=== PATIENT | female | born 1945 | race Caucasian/White ===

== ENCOUNTER → 2023-11-12 10:27 | Outpatient (REF) | payer MEDICARE, SELFPAY | LOC: HWRAD 10:27 | PROVIDERS: ATTENDING PHYSICIAN Family Medicine | DX: R91.1 Solitary pulmonary nodule (principal) | CPT/HCPCS: 71250 ==

== ENCOUNTER 2024-08-22 17:16 | Emergency (ER) | payer MEDICARE, SELFPAY ==
[2024-08-22] VITALS (11 sets, daily range): BP systolic 137–174; BP diastolic 67–134
[2024-08-22 17:39] LABS: % Basophils 0.6 % (0-2); % Eosinophils 0.3 % (0-6); % Immature Granulocytes 0.3 % (0-0.5); % Lymphocytes 22.3 % (20.5-51.1); % Monocytes 6.7 % (1.7-9.3); % Neutrophils 69.8 % (42.2-75.2); Absolute Lymphocytes 1.5 10^3/uL (1.2-3.4); Absolute Monocytes 0.4 10^3/uL (0.1-0.6); Absolute Neutrophils 4.6 10^3/uL (1.4-6.5); Hematocrit 39.8 % (37.0-47.0); Hemoglobin 13.1 g/dL (12.0-16.0); Mean Corp Hgb Conc. 32.9 g/dL (33.0-37.0); Mean Corpuscular Hgb 29.4 pg (27.0-31.0); Mean Corpuscular Volume 89.4 fL (81.0-99.0); Mean Platelet Volume 9.3 fL (7.4-10.4); Nucleated Red Blood Cells % 0 %; Platelet Count 241 10^3/uL (130-400); Red Blood Cell Count 4.45 10^6/uL (4.20-5.40); Red Cell Dist. Width 12.8 % (11.5-14.5); White Blood Cell Count 6.6 10^3/uL (4.8-10.8)
[2024-08-22 18:03] LABS: ALT (SGPT) 46 U/L (0-35); AST (SGOT) 39 U/L (14-36); Albumin 4.3 g/dl (3.5-5.0); Alkaline Phosphatase 72 U/L (38-126); Blood Urea Nitrogen 28 mg/dl (7-17); Calcium 9.2 mg/dl (8.4-10.2); Carbon Dioxide 28 mmol/L (22-30); Chloride 107 mmol/L (98-107); Glucose 114 mg/dl (70-99); Potassium 4.2 mmol/L (3.5-5.1); Sodium 141 mmol/L (135-145); Total Bilirubin 0.3 mg/dl (0.2-1.3); Total Protein 7.2 g/dl (6.3-8.2); eGFR > 60.00
--- NOTE | 2024-08-22 22:07 | ED.GENMED ---
History of Present Illness
General
Chief Complaint: Dizziness
Source: patient
Exam Limitations: none
Time Seen by Provider: 08/22/24 21:56
History of Present Illness
History of Present Illness:
See MDM
Past History
Past History
ED Past Medical History: Asthma, GERD, Psychiatric (depression) and Other (sleep apnea)
ED Past Surgical History: Cholecystectomy and Gynecological
Social History
Tobacco: Non-smoker
Alcohol: None
Drug: None
Living: alone
Employment: Retired
Family History
Family History: Hypertension
Phy Exam
Physical Exam
Physical Exam:
See MDM
Course
Orders/Labs/Results
Orders:
Orders
08/22/24 17:25
Electrocardiogram (*1) Urgent
Reason for Study: Vertigo / Dizzy
EKG- Treatment ONCE
08/22/24 17:33
Complete Blood Count/With Diff Urgent
Comprehensive Metabolic Panel Urgent
08/22/24 22:06
CT Head W/o Iv Contrast Urgent
Comment:
Reason For Exam: gaze palsy and dizzy
Labetalol HCl [Trandate] 10 mg IV NOW STA
Abnormal Lab Results
08/22/24
17:33
MCHC 32.9 L g/dL
(33.0-37.0)
BUN 28 H mg/dl
(7-17)
Glucose 114 H mg/dl
(70-99)
AST 39 H U/L
(14-36)
ALT 46 H U/L
(0-35)
08/22/24 17:33
08/22/24 17:33
Vital Signs
Initial and Last Documented VS:
Initial Vital Signs
Temp Pulse Resp BP Pulse Ox
98 F 88 16 174/95 100
08/22/24 17:22 08/22/24 17:22 08/22/24 17:22 08/22/24 17:22 08/22/24 17:22
Last Documented Vital Signs
Temp Pulse Resp BP Pulse Ox
98 F 75 14 139/68 100
08/22/24 17:22 08/22/24 23:02 08/22/24 23:02 08/22/24 23:02 08/22/24 23:02
MDM/Problems Addressed
Differential Diagnosis Includes:
HPI and MDM Narrative:
78-year-old female presenting for evaluation of right-sided gaze palsy. Patient blames her memory but states she cannot recollect the exact details. She states she woke up feeling okay. She noted the symptoms around 10:30 AM. She noticed that
her eyes were stuck to the right. This was associated with some dizziness. After several minutes, it appeared to self resolve but she came in for evaluation. Now, she planes of weakness and fatigue but denies any visual complaints. On exam,
heart regular in rhythm. EOMI. Pupils equal reactive. No focal neurodeficits. Patient found to be hypertensive. Will continue to monitor
Physical exam
General: Well appearing and non-toxic
HEENT: protecting airway. Pupils equal reactive. EOMI
Neck: appears supple
CV: No evidence of cyanosis. Regular rate and rhythm
Resp: No accessory muscle use
Abd: Non-distended
Extremities: No deformities
Neuro: alert. NIH stroke scale 0
Psych: Normal affect
Skin: Intact
Problems Addressed including Acute and Chronic Conditions affecting care:
1. Resolved gaze palsy
Acuity: acute
Prognosis: stable
Details: Discussed seizure versus stroke. Will obtain CT head
2. Hypertension
Acuity: acute
Prognosis: stable
Details: Will continue to monitor
Updates
CT head negative. On multiple reassessments, patient remains symptom-free. I did offer and suggest admission for MRI and neurology evaluation. Patient understands the concern I have the risk of going home which she states she is getting at home.
We did discuss seizure versus TIA. She has neurology follow-up next month in regards to memory loss. She states she will call the neurologist to try to expedite the follow-up. Until then, I discussed follow-up with PCP to discuss outpatient MRI
Differential Diagnosis (but not limited to): Stroke, seizure
Testing considered: CTA
Drug therapy (if applicable): OTC meds, please see d/c instruction regarding Rx drugs
Amount and/or Complexity of Data Reviewed
Clinical info obtained from: Patient
External data reviewed: N/A
Labs I independently reviewed (but not limited to): Mild LFT elevation
Radiology: The CT scan was personally and independently reviewed. In addition, official CT report reviewed.
Pulse Ox: not hypoxic
EKG independently reviewed: Normal sinus rhythm, left axis, no STEMI
Rodding Anode Worker: Sinus rhythm
Critical Care: N/A
Risk of Complication:
Social Determinants of health: Good social support
Discussed with other providers: N/A
Escalation of Care includes Admit/Obs: After being observed in the Emergency Department, pt stable for discharge.
Occasional wrong word or 'sound a like' substitutions may have occurred due to the inherent limitations of voice recognition software. Read the chart carefully and recognize, using context, where substitutions have occurred.
*Critical Care Note
Total Time (30-74mins, 75-104mins- exclusive of procedures): Not Applicable
ED Attending Note
-
Portions of this chart may have been created with voice recognition software.� Occasional wrong word or��sound alike� substitutions may have occurred due to the inherent limitations of voice recognition software.
Discharge Plan
Departure
Patient Disposition: Home (Routine Discharge)
Date of Disposition: 08/22/24
Time of Disposition: 23:55
Patient with high blood pressure during this ER visit?: Yes
Discharge Problem:
Gaze palsy
Instructions: BLOOD PRESSURE
Prescriptions:
No Action
Alvesco
2 puff inhalation PRN (Reason: wheezes)
esomeprazole magnesium [Nexium] 40 MG capsule,delayed release(DR/EC)
40 mg PO DAILY
Lexapro
30 mg PO DAILY
Melotain
9 mg PO DAILY
Seroquel:
50 mg PO DAILY
Synthroid:
0.75 mcg PO DAILY
Tamasapen
30 mg PO DAILY
Xopenex Concentrate
2 puff inhalation PRN (Reason: wheezes )
hydrocodone-acetaminophen [Vicodin] 1 EACH tablet
1 tab PO Q6HPRN PRN (Reason: severe pain) Qty: 12 0RF
wygspdiz-qmqlyaolvZe-ndqlfnhfN 15 GM ointment
15 gm TP BID Qty: 1 0RF
Rx Instructions:
to rash bid
famciclovir 500 MG tablet
500 mg PO Q8 Qty: 24 0RF
hydrocodone-acetaminophen [Vicodin] 1 EACH tablet
1 ea PO .Q4-6HPRN Qty: 12 0RF
meclizine 12.5 MG tablet
12.5 mg PO Q8HPRN PRN (Reason: vertigo) Qty: 14 1RF
Referrals:
Vincent Hopson DO [Family Provider, Family Practice]
Activity Restrictions/Additional Instructions:
Please return for any worsening symptoms.
You may return at any time if you have further concerns.
Please follow up with your doctor at the first available appointment, preferably this week. Please discuss obtaining an outpatient brain MRI.
Please call the neurologist and explain your symptoms. They may want to expedite your Claritza follow-up.
Thank you for choosing [facility].
Interventions
Interventions:
*Risk Screen - Suicide Last Done: 08/22/24 17:24
*General Assessment Last Done: 08/22/24 21:16
*Neglect/Abuse Screening Last Done: 08/22/24 17:24
*ED- Fall Risk Assessment Last Done: 08/22/24 21:16
*ED COVID-19 Vaccine History Last Done: 08/22/24 21:16
ED- Neurological Assessment Last Done: 08/22/24 21:16
ED- Cardiac Assessment Last Done: 08/22/24 23:49
Discharge Date and Time
Print Language: LATVIAN
== END 2024-08-23 00:15 | disposition home or self-care (01) ==
LOC: EMR 17:16
PROVIDERS: Emergency Medicine; EMERGENCY PHYSICIAN Student in an Organized Health Care Education/Training Program; FAMILY PHYSICIAN Family Medicine
DX: G83.89 Other specified paralytic syndromes (principal); R42 Dizziness and giddiness; R53.1 Weakness; R53.83 Other fatigue; R03.0 Elevated blood-pressure reading, without diagnosis of hypertension; G47.30 Sleep apnea, unspecified; F32.A Depression, unspecified; J45.909 Unspecified asthma, uncomplicated; K21.9 Gastro-esophageal reflux disease without esophagitis; Z88.6 Allergy status to analgesic agent; Z88.5 Allergy status to narcotic agent; Z90.49 Acquired absence of other specified parts of digestive tract
CPT/HCPCS: 99284; 70450; 80053; 85025; 93005

== ENCOUNTER → 2024-11-08 14:21 | Outpatient (REF) | payer MEDICARE, SELFPAY | LOC: MRI 3T 14:21 | PROVIDERS: ATTENDING PHYSICIAN Family Medicine | DX: R41.3 Other amnesia (principal); R41.89 Other symptoms and signs involving cognitive functions and awareness | CPT/HCPCS: 70551 ==